=== PATIENT | female | born 1940 | race Caucasian/White ===

== ENCOUNTER 2017-02-06 07:25 | Emergency (ER) | payer MEDICARE, BC ==
[2017-02-06] MEDS ORDERED: Aspirin 81 MG Tab.Chew PO ONE (07:46)
--- NOTE | 2017-02-06 07:50 | EDM.PDOC ---
ED HPI GENERAL MEDICAL PROBLEM - General Chief Complaint: Chest Pain Stated Complaint: CHEST PRESSURE Time Seen by Provider: 02/06/17 07:41 Source of Information: Reports: Patient, Family, Old Records, RN Notes Reviewed History Limitations: Reports: No Limitations - History of Present Illness INITIAL COMMENTS - FREE TEXT/NARRATIVE: 76-year-old female presents emergency department day complaint of chest pressure , she states she's had 2 events of chest pressure in the last 12 hours 1 was in the middle of the night lasted a few minutes and then the other was this morning chest pressure continued she was shaky she was diaphoretic took 3 nitroglycerin with relief no nausea no shortness of breath. At this time she is chest pain-free Chest Pain Score (Numeric/FACES): 4 - Related Data Allergies Allergy/AdvReac Type Severity Reaction Status Date / Time codeine AdvReac Mild Nausea Verified 02/06/17 07:33 Home Meds: Home Meds Aspirin [Lucsa Chewable Aspirin] 81 mg PO DAILY 06/30/13 [History] Ca Carbonate/Vitamin D3/Vit K [Calcium + D Soft Chewable Tab] 1 each PO BID 08/12 [History] Carvedilol [Coreg] 25 mg PO BID 06/30/13 [History] Citalopram Hydrobromide [Celexa] 10 mg PO DAILY 06/30/13 [History] Lisinopril 20 mg PO BID 06/30/13 [History] atorvaSTATin Calcium [Atorvastatin Calcium] 20 mg PO DAILY 06/30/13 [History] Acetaminophen [Tylenol Extra Strength] 500 mg PO Q4H PRN 07/04/14 [History] Omeprazole 1 tab PO DAILY 02/06/17 [History] Past Medical History Cardiovascular History: Reports: CAD, High Cholesterol, Hypertension, [place], Stents Gastrointestinal History: Reports: GERD Social & Family History - Tobacco Use Smoking Status *Q: Never Smoker Second Hand Smoke Exposure: Yes - Alcohol Use Days Per Week of Alcohol Use: 3 Number of Drinks Per Day: 1 Total Drinks Per Week: 3 - Recreational Drug Use Recreational Drug Use: No ED ROS GENERAL - Review of Systems Review Of Systems: See Below Constitutional: Reports: Diaphoresis HEENT: Reports: No Symptoms Respiratory: Reports: No Symptoms Cardiovascular: Reports: Chest Pain GI/Abdominal: Reports: No Symptoms : Reports: No Symptoms Musculoskeletal: Reports: No Symptoms Skin: Reports: No Symptoms Neurological: Reports: No Symptoms ED EXAM, GENERAL - Physical Exam Exam: See Below Free Text/Narrative:: General: Female, not in any distress, alert and oriented x3 HEENT: head is atraumatic normocephalic, eyes pupils equal round reactive to light, sclera clear no conjunctivitis appreciated. Ears tympanic membranes clear and ornelas landmarks and light reflex are present bilaterally canals are clear. Nose no septal deviation, nares are clear, no blood present. Mouth mucosa is moist and pink no erythema or exudate noted in soft palate, tongue is midline uvula is midline, dentition is intact. Neck: Supple no thyromegaly no tracheal deviation. Nodes: Cervical nodes subclavicular nodes nontender no palpable lymphadenopathy noted. Lungs: clear to auscultation bilaterally with symmetrical respirations, no adventitious noise appreciated. CV: Regular rate and rhythm S1 and S2 appreciated no murmurs rubs or gallops noted. Abdomen: Soft, nontender, no palpable masses or organomegaly appreciated, no distention no guarding bowel sounds are present, . Neuro: Cranial nerves II through XII grossly intact Skin: Warm and dry, intact Extremities: No lower extremity edema appreciated Course - Vital Signs Last Recorded V/S: Last Vital Signs Temp 96.8 F 02/06/17 09:20 Pulse 55 L 02/06/17 11:07 Resp 15 02/06/17 11:07 BP 144/65 H 02/06/17 11:07 Pulse Ox 95 02/06/17 11:07 - Orders/Labs/Meds Orders: Active Orders 24 hr Category Date Time Status Cardiac Monitoring [RC] .As Directed Care 02/06/17 07:46 Active EKG Documentation Completion [RC] ASDIRECTED Care 02/06/17 07:47 Active EKG 12 Lead [EK] Stat Ther 02/06/17 07:47 Ordered Labs: Laboratory Tests 02/06/17 02/06/17 02/06/17 Range/Units 07:50 07:50 11:00 WBC 6.5 (4.5-11.0) K/uL RBC 4.67 (3.30-5.50) M/uL Hgb 13.5 (12.0-15.0) g/dL Hct 39.9 (36.0-48.0) % MCV 85 (80-98) fL MCH 29 (27-31) pg MCHC 34 (32-36) % Plt Count 143 L (150-400) K/uL Neut % (Auto) 40 (36-66) % Lymph % (Auto) 46 H (24-44) % Garrard % (Auto) 10 H (2-6) % Eos % (Auto) 4 (2-4) % Baso % (Auto) 1 (0-1) % Sodium 143 (140-148) mmol/L Potassium 4.0 (3.6-5.2) mmol/L Chloride 110 H (100-108) mmol/L Carbon Dioxide 26 (21-32) mmol/L Anion Gap 11.0 (5.0-14.0) mmol/L BUN 15 (7-18) mg/dL Creatinine 0.9 (0.6-1.0) mg/dL Est Cr Clr Drug Dosing 42.61 mL/min Estimated GFR (MDRD) > 60 (>60) Glucose 103 (74-106) mg/dL Calcium 8.5 (8.5-10.1) mg/dL Total Bilirubin 0.5 (0.2-1.0) mg/dL AST 18 D (15-37) U/L ALT 15 (12-78) U/L Alkaline Phosphatase 124 H (46-116) U/L CK-MB (CK-2) 1.0 (0-3.6) mg/mL Troponin I < 0.017 < 0.017 (0.000-0.056) ng/mL Total Protein 6.0 L (6.4-8.2) g/dL Albumin 3.3 L (3.4-5.0) g/dL Globulin 2.7 (2.3-3.5) g/dL Albumin/Globulin Ratio 1.2 (1.2-2.2) Meds: Medications Discontinued Medications Generic Name Dose Route Start Last Admin Trade Name Freq PRN Reason Stop Dose Admin Aspirin 324 mg 02/06/17 07:46 02/06/17 07:55 Aspirin PO 02/06/17 07:47 324 mg ONETIME ONE Administration - Re-Assessments/Exams Free Text/Narrative Re-Assessment/Exam: 02/06/17 09:17 Heart score is 4 she has had no chest pressure while in emergency department elected to repeat the troponin 3 hours after initial draw Departure - Departure Time of Disposition: 12:08 Disposition: Home, Self-Care 01 Condition: Good Clinical Impression: Atypical chest pain Forms: ED Department Discharge Additional Instructions: Please followup with your primary care provider in 3-5 days if not better, please call return to the emergency department with worsening of symptoms. - My Orders Last 24 Hours: My Active Orders 02/06/17 07:46 Cardiac Monitoring [RC] .As Directed 02/06/17 07:47 EKG Documentation Completion [RC] ASDIRECTED EKG 12 Lead [EK] Stat - Assessment/Plan Last 24 Hours: My Active Orders 02/06/17 07:46 Cardiac Monitoring [RC] .As Directed 02/06/17 07:47 EKG Documentation Completion [RC] ASDIRECTED EKG 12 Lead [EK] Stat Plan: Assessment Acuity = acute Site and laterality = atypical chest pain Etiology = unclear etiology Manifestations = none Location of injury = Home Lab values = CBC, CMP, troponin negative 2, EKG demonstrates a left bundle branch block this is unchanged from 2015 Plan I did review lab work and EKG results with her she had no chest pain while in the emergency department, plan discharge home follow-up primary care 3-5 days if no improvement Patient was in agreement with the plan all questions were answered, they were instructed to return to the emergency department or call for worsening symptoms. This note was dictated using [email or web address] voice recognition software please call with any questions.
--- NOTE | 2017-02-06 09:24 | CR ---
Chest 2V HISTORY: Chest Pain COMPARISON: 07/04/2014 FINDINGS: Lungs appear clear and normally aerated. Mild cardiomegaly is stable. No vascular redistribution or pleural fluid can be seen. Bony structures and soft tissues are unremarkable. IMPRESSION: Mild cardiomegaly without evidence for decompensation. No acute chest abnormality or significant int erval change is identified.
[2017-02-06 11:08] VITALS: BP 144/65
== END 2017-02-06 12:16 | disposition home or self-care (01) ==
LOC: JP.ED 07:25
DX: R07.89 Other chest pain (principal); I25.2 Old myocardial infarction; I10 Essential (primary) hypertension; I25.10 Atherosclerotic heart disease of native coronary artery without angina pectoris; E78.00 Pure hypercholesterolemia, unspecified; K21.9 Gastro-esophageal reflux disease without esophagitis; Z79.82 Long term (current) use of aspirin; Z79.899 Other long term (current) drug therapy; Z88.5 Allergy status to narcotic agent
CPT/HCPCS: 36415; 71020; 80053; 82553; 84484; 85025; 93005; 99285; A9270; 93010; 99284

== ENCOUNTER 2018-10-10 15:16 | Emergency (ER) | payer MEDICARE, BC ==
--- NOTE | 2018-10-10 16:41 | EDM.PDOC ---
<OfficerEver - Last Filed: 10/10/18 17:24> ED HPI GENERAL MEDICAL PROBLEM - General Chief Complaint: Cardiovascular Problem Stated Complaint: HIGH BP Time Seen by Provider: 10/10/18 16:15 - Related Data Allergies Allergy/AdvReac Type Severity Reaction Status Date / Time codeine AdvReac Mild Nausea Verified 10/10/18 15:47 Home Meds: Home Meds RX: Aspirin [Lucas Chewable Aspirin] 81 mg PO DAILY 06/30/13 [History] RX: Ca Carbonate/Vitamin D3/Vit K [Calcium + D Soft Chewable Tab] 1 each PO BID 06/30/13 [History] RX: Carvedilol [Coreg] 25 mg PO BID 06/30/13 [History] RX: Citalopram Hydrobromide [Celexa] 10 mg PO Q48H 06/30/13 [History] RX: atorvaSTATin Calcium [Atorvastatin Calcium] 10 mg PO DAILY 06/30/13 [History ] RX: Acetaminophen [Tylenol Extra Strength] 500 mg PO Q4H PRN 07/04/14 [History] RX: Omeprazole 1 tab PO DAILY 02/06/17 [History] RX: Oxybutynin 5 mg PO BID 10/10/18 [History] RX: Valsartan 160 mg PO BID 10/10/18 [History] ED EXAM, GENERAL - Physical Exam Free Text/Narrative:: Agree with exam below Course - Vital Signs Last Recorded V/S: Last Vital Signs Temp 36.0 C 10/10/18 16:11 Pulse 57 L 10/10/18 17:16 Resp 14 10/10/18 17:16 BP 133/65 10/10/18 17:16 Pulse Ox 96 10/10/18 17:16 - Orders/Labs/Meds Labs: Laboratory Tests 10/10/18 Range/Units 16:48 Troponin I < 0.017 (0.000-0.056) ng/mL Departure - Departure Time of Disposition: 17:25 Disposition: Home, Self-Care 01 Condition: Good Clinical Impression: Hypertension Qualifiers: Hypertension type: essential hypertension Qualified Code(s): I10 - Essential ( primary) hypertension Instructions: Hypertension, [id number] Referrals: Cecil Drummond MD [Primary Care Provider] - Forms: ED Department Discharge Additional Instructions: Follow-up with primary care as needed, call return to the emergency department worsening of symptoms - Assessment/Plan Plan: Assessment Acuity = acute Site and laterality = hypertension Etiology = probable anxiety component Manifestations = none Location of injury = Home Lab values = troponin was negative Plan Mainly reassurance follow-up with primary care as needed This note was dictated using [email or web address] voice recognition software please call with any questions on syntax or grammar. <Radha Hernandez - Last Filed: 10/10/18 17:34> ED HPI GENERAL MEDICAL PROBLEM - General Source of Information: Reports: Patient History Limitations: Reports: No Limitations - History of Present Illness INITIAL COMMENTS - FREE TEXT/NARRATIVE: Patient states that after nap today she felt like 'every nerve in my body was shaking'. 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: Musculoskeletal History: Reports: Back Pain, Chronic, Osteoarthritis Neurological History: Reports: Migraines Psychiatric History: Reports: Depression Hematologic History: Reports: Anemia Oncologic (Cancer) History: Reports: Breast - Infectious Disease History Infectious Disease History: Reports: Chicken Pox, Measles, Mumps - Past Surgical History HEENT Surgical History: Reports: Cataract Surgery, Oral Surgery Female Surgical History: Reports: D&C, Tubal Ligation Oncologic Surgical History: Reports: Lumpectomy, Mastectomy Social & Family History - Tobacco Use Smoking Status *Q: Never Smoker Second Hand Smoke Exposure: No - Caffeine Use Caffeine Use: Reports: Soda, Tea - Alcohol Use Days Per Week of Alcohol Use: 3 Number of Drinks Per Day: 1 Total Drinks Per Week: 3 - Recreational Drug Use Recreational Drug Use: No ED ROS GENERAL - Review of Systems Review Of Systems: See Below Constitutional: Reports: No Symptoms HEENT: Reports: No Symptoms Respiratory: Reports: No Symptoms Cardiovascular: Reports: No Symptoms, Other (has history of arrythmia, denies changes in this) Endocrine: Reports: No Symptoms GI/Abdominal: Reports: No Symptoms : Reports: No Symptoms Musculoskeletal: Reports: No Symptoms Skin: Reports: No Symptoms Neurological: Reports: No Symptoms Psychiatric: Reports: No Symptoms Hematologic/Lymphatic: Reports: No Symptoms Free Text/Narrative/Comment: Denies shortness of breath, syncopal episodes, or feelings of dizziness or tinnitis. Denies gait changes, changes to bowel or bladder. ED EXAM, GENERAL - Physical Exam Exam: See Below Exam Limited By: No Limitations General Appearance: Alert, WD/WN, No Apparent Distress Ears: Hearing Grossly Normal Nose: Normal Inspection Throat/Mouth: Normal Inspection, Normal Lips, Normal Teeth, Normal Gums, Normal Voice Head: Atraumatic, Normocephalic Neck: Normal Inspection, Supple, Non-Tender Respiratory/Chest: No Respiratory Distress, Lungs Clear, Normal Breath Sounds, No Accessory Muscle Use, Chest Non-Tender Cardiovascular: Normal Peripheral Pulses (equal lap winder strength bilaterally), Regular Rate, Rhythm Peripheral Pulses: 2+: Radial (L), Radial (R) GI/Abdominal: Normal Bowel Sounds, Soft, Non-Tender, No Organomegaly, No Distention, No Abnormal Bruit Back Exam: Normal Inspection, Full Range of Motion Extremities: Normal Inspection, Normal Range of Motion, Non-Tender, No Pedal Edema (states slight swelling noted is per usual), Normal Capillary Refill Neurological: Alert, Oriented, CN II-XII Intact, Normal Gait Psychiatric: Normal Affect, Normal Mood Skin Exam: Warm, Dry, Intact, Normal Color, No Rash Lymphatic: No Adenopathy Course - Vital Signs Text/Narrative:: Patient shares that has worked very hard over past few days getting ready for dinner green party last night. Expresses didn't sleep as long as normal, got up early and cleaned up dinner dishes. Carried on for normal Thursday and only reports ' feeling off' after she woke from her nap. Expresses concern that she has had two silent heart attacks and wonders if the feeling in her nerves is because of another heart attack. Reassurance given. Troponin ordered. - Orders/Labs/Meds Labs: Laboratory Tests 10/10/18 Range/Units 16:48 Troponin I < 0.017 (0.000-0.056) ng/mL
[2018-10-10 17:16] VITALS: BP 133/65
== END 2018-10-10 17:30 | disposition home or self-care (01) ==
LOC: JP.ED 15:16
DX: I10 Essential (primary) hypertension (principal); E78.00 Pure hypercholesterolemia, unspecified; I25.2 Old myocardial infarction; K21.9 Gastro-esophageal reflux disease without esophagitis; F32.9 Major depressive disorder, single episode, unspecified; Z95.5 Presence of coronary angioplasty implant and graft; Z88.5 Allergy status to narcotic agent; Z79.899 Other long term (current) drug therapy
CPT/HCPCS: 36415; 84484; 99283

== ENCOUNTER 2019-08-18 12:37 | Emergency (ER) | payer MEDICARE, BC ==
[2019-08-18 13:00] VITALS: BP 149/61; PULSE 55
--- NOTE | 2019-08-18 13:17 | EDM.PDOC ---
ED HPI GENERAL MEDICAL PROBLEM - General Chief Complaint: Genitourinary Problem Stated Complaint: POSSIBLE BLADDER INFECTION Time Seen by Provider: 08/18/19 13:05 Source of Information: Reports: Patient, Old Records History Limitations: Reports: No Limitations - History of Present Illness INITIAL COMMENTS - FREE TEXT/NARRATIVE: 79 yo female patient of Dr. Saucedo presents with recent onset of dysuria. She denies fever, chills, nausea or flank pain. Did not try to get into the clinic. Is here alone. Onset: Today, Gradual Onset Date: 08/18/19 Duration: Hour(s):, Constant Location: Reports: Pelvis (urethral) Quality: Reports: Burning Severity: Mild Improves with: Reports: None Worsens with: Reports: Other (unknown) Context: Reports: Other (See HPI) Associated Symptoms: Reports: No Other Symptoms Treatments FUR BLOWER OPERATOR: Reports: Other (see below) (none) Pelvic Pain Score (Numeric/FACES): 4 - Related Data Allergies Allergy/AdvReac Type Severity Reaction Status Date / Time codeine AdvReac Mild Nausea Verified 08/18/19 13:22 Home Meds: Home Meds Aspirin [Lucas Chewable Aspirin] 81 mg PO DAILY 06/30/13 [History] Calcium Carb/Vitamin D3/Vit K1 [Calcium + D Soft Chewable Tab] 1 each PO BID 08/12 [History] Citalopram Hydrobromide [Celexa] 10 mg PO Q48H 06/30/13 [History] atorvaSTATin Calcium [Atorvastatin Calcium] 10 mg PO DAILY 06/30/13 [History] carvediloL [Coreg] 25 mg PO BID 06/30/13 [History] Acetaminophen [Tylenol Extra Strength] 500 mg PO Q4H PRN 07/04/14 [History] Omeprazole 1 tab PO DAILY 02/06/17 [History] Oxybutynin 5 mg PO BID 10/10/18 [History] Valsartan 160 mg PO BID 10/10/18 [History] Loratadine [Claritin] 1 tab PO DAILY PRN 08/18/19 [History] Losartan [Cozaar] 1 tab PO BID 08/18/19 [History] Nitroglycerin 0.4 mg SL ASDIRECTED 08/18/19 [History] Past Medical History HEENT History: Reports: Cataract, Hard of Hearing, Impaired Vision Cardiovascular History: Reports: CAD, High Cholesterol, Hypertension, [place], Stents Gastrointestinal History: Reports: GERD 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: Musculoskeletal History: Reports: Back Pain, Chronic, Osteoarthritis Neurological History: Reports: Migraines Psychiatric History: Reports: Depression Hematologic History: Reports: Anemia Oncologic (Cancer) History: Reports: Breast - Infectious Disease History Infectious Disease History: Reports: Chicken Pox, Measles, Mumps - Past Surgical History HEENT Surgical History: Reports: Cataract Surgery, Oral Surgery Female Surgical History: Reports: D&C, Tubal Ligation Oncologic Surgical History: Reports: Lumpectomy, Mastectomy Social & Family History - Caffeine Use Caffeine Use: Reports: Soda, Tea ED ROS GENERAL - Review of Systems Review Of Systems: Comprehensive ROS is negative, except as noted in HPI. Constitutional: Reports: No Symptoms. Denies: Fever, Chills GI/Abdominal: Denies: Nausea : Reports: Dysuria. Denies: Flank Pain ED EXAM, RENAL/ - Physical Exam Exam: See Below Exam Limited By: No Limitations General Appearance: Alert, WD/WN, No Apparent Distress Ears: Hearing Loss GI/Abdominal: Normal Bowel Sounds, Soft, No Distention, Tender (very mild tenderness of the bladder area with palpation, "I can feel it".). No: Non- Tender Back Exam: No: CVA Tenderness (R), CVA Tenderness (L) Neurological: Alert, Oriented, CN II-XII Intact, Normal Cognition, No Motor/ Sensory Deficits Psychiatric: Normal Affect, Normal Mood Skin Exam: Warm, Dry, Intact, Normal Color, No Rash Course - Vital Signs Last Recorded V/S: Last Vital Signs Temp 35.9 C L 08/18/19 13:21 Pulse 55 L 08/18/19 13:21 Resp 16 08/18/19 13:21 BP 149/61 H 08/18/19 13:21 Pulse Ox 93 L 08/18/19 13:21 - Orders/Labs/Meds Labs: Laboratory Tests 08/18/19 Range/Units 13:12 Urine Color Yellow (YELLOW) Urine Appearance Slightly cloudy A (CLEAR) Urine pH 7.0 (5.0-8.0) Ur Specific [place] 1.015 (1.008-1.030) Urine Protein Negative (NEGATIVE) mg/dL Urine Glucose (UA) Negative (NEGATIVE) mg/dL Urine Ketones Negative (NEGATIVE) mg/dL Urine Occult Blood Negative (NEGATIVE) Urine Nitrite Negative (NEGATIVE) Urine Bilirubin Negative (NEGATIVE) Urine Urobilinogen 0.2 (0.2-1.0) EU/dL Ur Leukocyte Esterase Negative (NEGATIVE) Urine RBC 0-5 (0-5) Urine WBC 0-5 (0-5) Ur Epithelial Cells Few Amorphous Sediment Not seen Urine Bacteria Few Urine Mucus Few Departure - Departure Time of Disposition: 13:35 Disposition: Home, Self-Care 01 Condition: Good Clinical Impression: Abdominal pain Qualifiers: Abdominal location: lower abdomen, unspecified Qualified Code(s): R10.30 - Lower abdominal pain, unspecified - Discharge Information *PRESCRIPTION DRUG MONITORING PROGRAM REVIEWED*: No *COPY OF PRESCRIPTION DRUG MONITORING REPORT IN PATIENT ADY: No Instructions: Pain Without a Known Cause Referrals: Cecil Drummond MD [Primary Care Provider] - Forms: ED Department Discharge Additional Instructions: Use AZO per package instructions for pain relief. If this does not help at all, then take acetaminophen up to 1000 mg every 6 hrs as needed. F/U for recheck in the next 48-72 hrs to see if your urine culture grew anything. Drink ample fluids and drink cranberry juice. Stay in touch with Dr. Drummond regarding your condition. Sepsis Event Note - Focused Exam Vital Signs: Vital Signs Temp Pulse Resp BP Pulse Ox 08/18/19 13:21 35.9 C L 55 L 16 149/61 H 93 L 08/18/19 12:59 35.9 C L 55 L 16 149/61 H 93 L Date Exam was Performed: 08/18/19 Time Exam was Performed: 13:34
== END 2019-08-18 13:48 | disposition home or self-care (01) ==
LOC: JP.ED 12:37
DX: R10.30 Lower abdominal pain, unspecified (principal); K21.9 Gastro-esophageal reflux disease without esophagitis; I25.10 Atherosclerotic heart disease of native coronary artery without angina pectoris; E78.00 Pure hypercholesterolemia, unspecified; I25.2 Old myocardial infarction; I10 Essential (primary) hypertension; F32.9 Major depressive disorder, single episode, unspecified; M19.90 Unspecified osteoarthritis, unspecified site; Z79.899 Other long term (current) drug therapy; Z88.5 Allergy status to narcotic agent
CPT/HCPCS: 81001; 87086; 99282; 99284

== ENCOUNTER 2021-04-13 11:30 | Emergency (ER) | payer MEDICARE, BC ==
--- NOTE | 2021-04-13 12:25 | EDM.PDOC ---
ED HPI GENERAL MEDICAL PROBLEM - General Chief Complaint: Chest Pain Stated Complaint: CHEST DISCOMFOT Time Seen by Provider: 04/13/21 12:19 Source of Information: Reports: Patient, RN Notes Reviewed History Limitations: Reports: No Limitations - History of Present Illness INITIAL COMMENTS - FREE TEXT/NARRATIVE: 80-year-old female presents emergency department today following an event last night she does have a history of coronary artery disease with stenting she states last night after eating dinner around 700 sudden onset of nausea and vomiting no chest pressure no diaphoresis she has had myocardial infarction's in the past have been asymptomatic. Today when she woke up she did not feel her usual self the nausea has resolved she denies any chest pain no diaphoresis or dyspnea - Related Data Allergies Allergy/AdvReac Type Severity Reaction Status Date / Time codeine AdvReac Mild Nausea Verified 04/13/21 12:10 Home Meds: Home Meds Aspirin [Lucas Chewable Aspirin] 81 mg PO DAILY 06/30/13 [History] Calcium Carb/Vitamin D3/Vit K1 [Calcium + D Soft Chewable Tab] 1 each PO BID 06/30/13 [History] Citalopram Hydrobromide [Celexa] 10 mg PO Q48H 06/30/13 [History] atorvaSTATin Calcium [Atorvastatin Calcium] 10 mg PO DAILY 06/30/13 [History] carvediloL [Coreg] 25 mg PO BID 06/30/13 [History] Acetaminophen [Tylenol Extra Strength] 500 mg PO Q4H PRN 07/04/14 [History] Omeprazole 1 tab PO DAILY 02/06/17 [History] Oxybutynin 5 mg PO BID 10/10/18 [History] Valsartan 160 mg PO BID 10/10/18 [History] Loratadine [Claritin] 1 tab PO DAILY PRN 08/18/19 [History] Losartan [Cozaar] 1 tab PO BID 08/18/19 [History] Nitroglycerin 0.4 mg SL ASDIRECTED 08/18/19 [History] Past Medical History HEENT History: Reports: Cataract, Hard of Hearing, Impaired Vision Cardiovascular History: Reports: CAD, High Cholesterol, Hypertension, [place], Stents Gastrointestinal History: Reports: GERD [employer]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: Musculoskeletal History: Reports: Back Pain, Chronic, Osteoarthritis Neurological History: Reports: Migraines Psychiatric History: Reports: Depression Hematologic History: Reports: Anemia Oncologic (Cancer) History: Reports: Breast - Infectious Disease History Infectious Disease History: Reports: Chicken Pox, Measles, Mumps - Past Surgical History HEENT Surgical History: Reports: Cataract Surgery, Oral Surgery Cardiovascular Surgical History: Reports: Coronary Artery Stent GI Surgical History: Reports: Colonoscopy Female Surgical History: Reports: D&C, Tubal Ligation Oncologic Surgical History: Reports: Lumpectomy, Mastectomy Social & Family History - Tobacco Use Tobacco Use Status *Q: Unknown Ever Used Tobacco - Caffeine Use Caffeine Use: Reports: Soda, Tea Other Caffeine Use: tea daily ED ROS GENERAL - Review of Systems Review Of Systems: See Below Constitutional: Reports: No Symptoms HEENT: Reports: No Symptoms Respiratory: Reports: No Symptoms Cardiovascular: Reports: No Symptoms GI/Abdominal: Reports: Nausea, Vomiting : Reports: No Symptoms Musculoskeletal: Reports: No Symptoms ED EXAM, GENERAL - Physical Exam Exam: See Below Exam Limited By: No Limitations General Appearance: Alert, WD/WN, No Apparent Distress Respiratory/Chest: No Respiratory Distress, Lungs Clear, Normal Breath Sounds, No Accessory Muscle Use, Chest Non-Tender Cardiovascular: Regular Rate, Rhythm, No Murmur GI/Abdominal: Soft, Non-Tender #1 Interpretation EKG Date: 04/13/21 Time: 12:56 Rhythm: NSR [place]: LAD-Left [place] Deviation P-Wave: Present QRS: LBBB ST-T: Normal QT: Normal Comparison: No Change Course - Vital Signs Last Recorded V/S: Last Vital Signs Temp 95.7 F L 04/13/21 12:05 Pulse 51 L 04/13/21 12:05 Resp 20 04/13/21 12:05 BP 145/58 H 04/13/21 12:05 Pulse Ox 96 04/13/21 12:05 - Orders/Labs/Meds Orders: Active Orders 24 hr Category Date Time Status Cardiac Monitoring [RC] .As Directed Care 04/13/21 12:23 Active Iopamidol [Isovue-300 (61%)] Med 04/13/21 13:00 Active 100 ml IV . DIRECTED Sodium Chloride 0.9% [Normal Saline] 80 ml Med 04/13/21 13:00 Active IV ASDIRECTED EKG 12 Lead [EK] Stat Ther 04/13/21 12:23 Ordered Medication Orders Sodium Chloride (Normal Saline) 80 mls @ 3 mls/sec IV ASDIRECTED MICHAELA Last Admin: 04/13/21 13:51 Dose: 3 mls/sec Documented by: DAGMARKLALY Iopamidol (Iopamidol 612 Mg/Ml 100 Ml Bottle) 100 ml IV . DIRECTED MICHAELA Last Admin: 04/13/21 13:52 Dose: 100 ml Documented by: PEDRITO Labs: Laboratory Tests 04/13/21 04/13/21 Range/Units 12:35 12:35 WBC 9.8 (4.5-11.0) K/uL RBC 4.75 (3.30-5.50) M/uL Hgb 13.4 (12.0-15.0) g/dL Hct 40.6 (36.0-48.0) % MCV 86 (80-98) fL MCH 28 (27-31) pg MCHC 33 (32-36) % Plt Count 153 (150-400) K/uL Neut % (Auto) 43.0 (36-66) % Lymph % (Auto) 46.3 H (24-44) % Williams % (Auto) 8.9 H (2-6) % Eos % (Auto) 1.3 L (2-4) % Baso % (Auto) 0.5 (0-1) % Sodium 138 L (140-148) mmol/L Potassium 4.3 (3.6-5.2) mmol/L Chloride 100 (100-108) mmol/L Carbon Dioxide 29 (21-32) mmol/L Anion Gap 13.3 (5.0-14.0) mmol/L BUN 17 (7-18) mg/dL Creatinine 0.8 (0.6-1.0) mg/dL Est Cr Clr Drug Dosing 44.85 mL/min Estimated GFR (MDRD) > 60 (>60) Glucose 95 (74-106) mg/dL Calcium 9.1 (8.5-10.1) mg/dL Total Bilirubin 0.9 D (0.2-1.0) mg/dL AST 14 L (15-37) U/L ALT 16 (12-78) U/L Alkaline Phosphatase 91 (46-116) U/L Troponin I < 0.017 (0.000-0.056) ng/mL Total Protein 5.8 L (6.4-8.2) g/dL Albumin 3.6 (3.4-5.0) g/dL Globulin 2.2 L (2.3-3.5) g/dL Albumin/Globulin Ratio 1.6 (1.2-2.2) Meds: Medications Generic Name Dose Route Start Last Admin Trade Name Arya PRN Reason Stop Dose Admin Sodium Chloride 80 mls @ 3 mls/sec 04/13/21 13:00 04/13/21 13:51 Normal Saline IV 3 mls/sec ASDIRECTED MICHAELA Administration Iopamidol 100 ml 04/13/21 13:00 04/13/21 13:52 Iopamidol 612 Mg/Ml 100 Ml Bottle IV 100 ml . DIRECTED MICHAELA Administration Departure - Departure Time of Disposition: 15:17 Disposition: Home, Self-Care 01 Condition: Fair Clinical Impression: Atypical chest pain Instructions: Nonspecific Chest Pain, Adult, [id number] Referrals: Cecil Drummond MD [Primary Care Provider] - Forms: ED Department Discharge Additional Instructions: Continue with your regular medications, please followup with your primary care provider in 3-5 days if not better, please call return to the emergency department with worsening of symptoms. Sepsis Event Note (ED) - Evaluation Sepsis Screening Result: No Definite Risk - Focused Exam Vital Signs: Vital Signs Temp Pulse Resp BP Pulse Ox 04/13/21 12:05 95.7 F L 51 L 20 145/58 H 96 - My Orders Last 24 Hours: My Active Orders 04/13/21 12:23 Cardiac Monitoring [RC] .As Directed EKG 12 Lead [EK] Stat 04/13/21 13:00 Iopamidol [Isovue-300 (61%)] 100 ml IV . DIRECTED Sodium Chloride 0.9% [Normal Saline] 80 ml IV ASDIRECTED - Assessment/Plan Last 24 Hours: My Active Orders 04/13/21 12:23 Cardiac Monitoring [RC] .As Directed EKG 12 Lead [EK] Stat 04/13/21 13:00 Iopamidol [Isovue-300 (61%)] 100 ml IV . DIRECTED Sodium Chloride 0.9% [Normal Saline] 80 ml IV ASDIRECTED Plan: Assessment Acuity = acute Site and laterality = atypical chest pain Etiology = unknown Manifestations = none Location of injury = Home Lab values = CBC, CMP, troponin unremarkable, CT scan of the chest reveals no pulmonary embolism no acute cardiopulmonary process Plan I did review lab work with her she is can follow-up with primary care in the next couple days for reevaluation This note was dictated using [employer] voice recognition software please call with any questions on syntax or grammar.
[2021-04-13] MEDS ORDERED: Sodium Chloride 0.9% 80 ML IV SCH (13:00)
[2021-04-13] MEDS ORDERED: Iopamidol 612 MG/ML 100 ML Bottle IV SCH (13:00)
--- NOTE | 2021-04-13 14:37 | CRLCT ---
For Patients: As a result of the 21st Century Cures Act, medical imaging exams and procedure reports are released immediately into your electronic medical record. You may view this report before your referring provider. If you have questions, please contact your health care provider. INDICATION: Chest painhx breast cancer HISTORY: Chest pain. Breast cancer. COMPARISON: None. TECHNIQUE: CT of the chest. 100 cc of Isovue-300 IV. Coronal/sagittal reconstruction images. FINDINGS: The thyroid gland is symmetric. There are right axillary lymph nodes which are enlarged by size criteria and, and too numerous to be considered normal. These measure up to 13 mm in short axis dimension. There are nonenlarged lymph nodes at station 10R, measuring up to 9 mm in short axis. The main pulmonary artery is dilated, measuring 39 mm in transverse dimension. There is no pulmonary embolus. There is no evidence for right heart strain. Degenerative calcific plaque in a normal caliber thoracic aorta. No dissection flap. The lung windows demonstrate no endobronchial mass. There are interstitial type opacities present in both lower lobes, with mild cylindrical bronchiectasis at the lung bases. There is no honeycomb formation. There is no pneumothorax. No resorptive atelectasis or consolidation. 4 mm right lower lobe pulmonary nodule on image 109, series 3. Followup may be obtained per Fleischner society guidelines. Evaluation of the upper abdomen demonstrates no adrenal mass. Benign renal cysts. Low-dense hepatic lesions are consistent with hepatic cysts. The largest is seen in segment , which measures 18 mm in dimension, and 2 Hounsfield units. There is no pancreatic mass or glandular atrophy. 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 The bone windows demonstrate degenerative disc disease. 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 On sagittal reconstruction images, the vertebral body heights are maintained. The manubrium, body, and xiphoid process of the sternum appear intact. IMPRESSION: 1. No findings are seen to explain chest pain. 2. Right axillary lymphadenopathy. 3. Borderline lymphadenopathy at station 10R. 4. Dilated main pulmonary artery, which may indicate pulmonary arterial hypertension. No pulmonary emboli. No pulmonary infarct or evidence on CT for right heart strain. 5. 4 millimeter right lower lobe pulmonary nodule, which may be followed per Fleischner society guidelines. 6. 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 No suspicious bone lesion is seen in the included axial skeleton. FLEISCHNER SOCIETY GUIDELINES - SOLID NODULES: SINGLE LOW RISK - nodule less than 6 mm: No routine follow-up. - nodule 6-8 mm: CT at 6-12 months, then consider CT at 18-24 months. - nodule greater than 8 mm: Consider CT at 3 months, PET/CT or tissue sampling. SINGLE HIGH RISK - nodule less than 6 mm: Optional CT at 12 months. - nodule 6-8 mm: CT at 6-12 months, then CT at 18-24 months. - nodule greater than 8 mm: Consider CT at 3 months, PET/CT or tissue sampling. MULTIPLE LOW RISK - nodule less than 6 mm: No routine follow-up. - nodule 6-8 mm: CT at 3-6 months, then consider CT at 18-24 months. - nodule greater than 8 mm: CT at 3-6 months, then consider CT at 18-24 months. MULTIPLE HIGH RISK - nodule less than 6 mm: Optional CT at 12 months. - nodule 6-8 mm: CT at 3-6 months, then at 18-24 months. - nodule greater than 8 mm: CT at 3-6 months, then at 18-24 months. Dictated by Robe Hunt MD @ 04/13/2021 2:36:20 PM Please note that all CT scans at this facility use dose modulation, iterative reconstruction, and/or weight-based dosing when appropriate to reduce radiation dose to as low as reasonably achievable. Dictated by: Robe Hunt MD @ 04/13/2021 14:36:32 (Electronically Signed)
[2021-04-13 15:20] VITALS: BP 157/59; PULSE 61
== END 2021-04-13 15:43 | disposition home or self-care (01) ==
LOC: JP.ED 11:30
DX: R07.89 Other chest pain (principal); I25.10 Atherosclerotic heart disease of native coronary artery without angina pectoris; E78.00 Pure hypercholesterolemia, unspecified; I10 Essential (primary) hypertension; I25.2 Old myocardial infarction; K21.9 Gastro-esophageal reflux disease without esophagitis; M19.90 Unspecified osteoarthritis, unspecified site; Z88.5 Allergy status to narcotic agent; Z79.82 Long term (current) use of aspirin; Z79.899 Other long term (current) drug therapy
CPT/HCPCS: 36415; 71260; 80053; 84484; 85025; 93005; 99285; Q9967

== ENCOUNTER 2022-02-07 12:21 | Emergency (ER) | payer MEDICARE, BC ==
[2022-02-07 12:38] VITALS: BP 162/59; PULSE 95
== END 2022-02-07 16:45 | disposition home or self-care (01) ==
LOC: JP.ED 12:21
DX: S02.2XXA Fracture of nasal bones, initial encounter for closed fracture (principal); S52.125A Nondisplaced fracture of head of left radius, initial encounter for closed fracture; S00.83XA Contusion of other part of head, initial encounter; I25.10 Atherosclerotic heart disease of native coronary artery without angina pectoris; E78.00 Pure hypercholesterolemia, unspecified; I10 Essential (primary) hypertension; I25.2 Old myocardial infarction; K21.9 Gastro-esophageal reflux disease without esophagitis; M19.90 Unspecified osteoarthritis, unspecified site; Z88.5 Allergy status to narcotic agent; Z79.82 Long term (current) use of aspirin; Z79.899 Other long term (current) drug therapy; W18.30XA Fall on same level, unspecified, initial encounter
CPT/HCPCS: 29125; 70160; 70160-26; 70450; 70450-26; 73080-26-LT; 73080-LT; 73090-26-LT; 73090-LT; 73110-26-LT; 73110-LT; 99284-25